=== PATIENT | male | born 1990 | race Caucasian/White ===

== ENCOUNTER 2018-10-13 16:43 | Emergency (ER) | payer SELFPAY ==
[2018-10-13 17:24] LABS: #Basophils 0.1 thou/uL (0.0-0.2); #Eosinphils 0.1 thou/uL (0.0-0.7); #Lymphocytes 2.5 thou/uL (1.20-3.40); #Monocytes 1.5 thou/uL (0.11-0.59); %Basophils 0.5 % (0.0-1.0); %Eosinophils 0.7 % (0.0-10.0); %Lymphocytes 13.5 % (21.0-51.0); %Monocytes 8.3 % (0.0-10.0); Hemoglobin 14.4 g/dL (14.0-18.0); Mean Corpuscular HGB CONC 35.8 g/dL (32.0-36.0); Mean Corpuscular Hemoglobin 30.2 pg (27.0-31.0); Mean Corpuscular Volume 84.4 fL (78.0-98.0); Mean Platelet Volume 7.2 fL (7.4-10.4); Platelet Count 223 thou/uL (130-400); RBC Distribution Width 10.3 % (11.5-14.5); Red Blood Cell (RBC) Count 4.77 mill/uL (4.70-6.10); White Blood Cell (WBC) Count 18.2 thou/uL (4.8-10.8)
[2018-10-13 17:26] LABS: MDiff Complete? YES; Manual Diff?? NO
[2018-10-13 17:41] LABS: ALT (SGPT) 47 U/L (8-55); AST (SGOT) 22 U/L (5-34); Albumin 4.2 g/dL (3.5-5.0); Alkaline Phosphatase 47 U/L (40-150); Anion Gap 13 mmol/L (10-20); BUN (Urea Nitrogen) 8 mg/dL (8.9-20.6); Bilirubin, Total 0.6 mg/dL (0.2-1.2); Calc. Creatinine Clearance 0 mL/min (70-130); Calcium 9.8 mg/dL (7.8-10.44); Carbon Dioxide 28 mmol/L (22-29); Chloride 99 mmol/L (98-107); Estimated GFR-MDRD Greater than 90; Globulin 3.3 g/dL (2.4-3.5); Glucose 84 mg/dL (70-105); Lipase 9 U/L (8-78); Protein, Total 7.5 g/dL (6.0-8.3); Sodium 136 mmol/L (136-145)
[2018-10-13 18:09] LABS: Bilirubin Negative (Negative); Blood, Urine Trace (Negative); Clarity Hazy (Clear); Glucose, Urine (Dipstick) Negative (Negative); Leukocyte Negative (Negative); Nitrite Negative (Negative); Protein, Urine (Dipstick) Negative (Neg-Trace); Specific Gravity, Urine 1.015 (1.005-1.030); Urobilinogen 0.2 mg/dL (0.2-1.0); pH, Urine 7.5 (5.0-9.0)
[2018-10-13 18:17] LABS: Crystals/HPF 1+ AMORPH PHOS HPF (Negative); RBC/HPF 0-3 HPF (0-3); Squamous Epithelial 0-3 HPF (0-3); WBC/HPF 0-3 HPF (0-3)
--- NOTE | 2018-10-13 23:28 | CT ---
ABDOMEN AND PELVIC CT SCAN WITH IV CONTRAST 10/13/18 HISTORY: 28-year-old male with history of abdominal pain. The lung bases are clear. The visualized liver, gallbladder, pancreas, spleen, and adrenal glands are unremarkable. No renal calculus or acute obstruction. There is extensive inflammatory change in t he region of the appendix as well as marked abnormal wall thickening of the cecum and a long segment of the terminal ileum with consider surrounding fat stranding as well as some minimal free fluid in t he right colonic gutter and in the right pelvis. There is a punctate calcific focus within this area of abnormal fat stranding. I favor this to be consistent with that of acute appendicitis with rupture with associated phlegmon and resultant secondary inflammation and wall thickening of the terminal il eum and cecum, there is some associated enlarged lymph nodes in the right lower quadrant as well. The free in the pelvis appears to be more dense than typical ascitic fluid and certainly could be consi stent with exudative fluid. No renal calculus or obstruction. IMPRESSION: Evidence for ruptured acute appendicitis with extensive inflammatory mass/phlegmon in the region of t he appendix with marked abnormal wall thickening of the terminal ileum and cecum probably secondary t o the ruptured appendix phlegmon and inflammatory mass. Findings were discussed with Dr. Valadez in the ER at 6:30 p.m.. There is no evidence for a percutaneously drainable abscess. No other significant acute process. POS: RRE
== END 2018-10-13 19:08 | disposition short-term general hospital (02) ==
LOC: BURERS 16:43
DX: K35.32 Acute appendicitis with perforation, localized peritonitis, and gangrene, without abscess (principal); F17.210 Nicotine dependence, cigarettes, uncomplicated
CPT/HCPCS: 36415; 74176; 80053; 81003; 81015; 83690; 85025; 96372